=== PATIENT | female | born 1960 | race Caucasian/White ===

== ENCOUNTER 2021-10-26 19:14 | Emergency (ER) | payer OTHER ==
--- NOTE | 2021-10-26 20:40 | NUR ---
CALLED IN OUTSIDE WITH NO ANSWER.
--- NOTE | 2021-10-26 20:50 | NUR ---
CALLED OUTSIDE WITH NO ANSWER.
--- NOTE | 2021-10-26 20:56 | NUR ---
PATIENT LEFT WITHOUT BEING SEEN BY DR. MERCHANT. NO FURTHER CARE PROVIDED FOR PATIENT.
[2021-10-27] MEDS ORDERED: PRED20TA5 PO (00:57)
== END 2021-10-26 20:40 | disposition left against medical advice (07) ==
LOC: MED 19:14
DX: J11.1 Influenza due to unidentified influenza virus with other respiratory manifestations (principal); Z53.21 Procedure and treatment not carried out due to patient leaving prior to being seen by health care provider

== ENCOUNTER 2021-10-26 21:39 | Emergency (ER) | payer OTHER ==
[~2021-10-26] VITALS: Ht 157.5 cm; Wt 73.0 kg
[2021-10-26 21:55] VITALS: BP 165/85
--- NOTE | 2021-10-26 21:55 | NUR ---
PT TO Jr[facility] IN TENT FOR EVALUATION
[2021-10-27] MEDS ORDERED: PRED20TA5 PO (00:57)
--- NOTE | 2021-10-27 01:10 | NUR ---
COVID PCR COLLECTED. PT DISCHARGED WITH RX OF PREDNISONE. PT AMBULATORY TO PERSONAL VEHICLE
== END 2021-10-27 01:10 | disposition home or self-care (01) ==
LOC: MED 21:39
DX: R05.9 Cough, unspecified (principal); Z20.822 Contact with and (suspected) exposure to COVID-19; M79.10 Myalgia, unspecified site; J02.9 Acute pharyngitis, unspecified; I10 Essential (primary) hypertension; Z90.710 Acquired absence of both cervix and uterus
CPT/HCPCS: 71045; 99284; U0003